=== PATIENT | male | born 1995 | race Hispanic/Latino ===

== ENCOUNTER 2018-12-06 07:47 | Day surgery (SDC) | payer OTHER ==
[~2018-12-06] VITALS: Ht 177.8 cm; Wt 86.2 kg
[~2018-12-06 07:47] MED LIST: EPINEPHrine 1MG/ML INJ 30ML MD-VIAL As Ordered ONE; LIDOCAINE 2% INJ 100 MG/5 ML SDV (FOR ANES.) As Ordered ONE; LIDOCAINE W/EPINEPHRINE 1% 20ML VIAL As Ordered ONE; METHYLENE BLUE 0.5% (5MG/ML) 10 ML AMP (PROVAYBLUE)(Q9968 PER 1MG) As Ordered ONE; MIDAZOLAM INJ 2 MG/2 ML VIAL (J2250) As Ordered ONE; PROPOFOL 200 MG/20 ML VIAL As Ordered ONE; ROCURONIUM BROMIDE 50 MG/5 ML VIAL As Ordered ONE; fentaNYL 250 MCG/5 ML INJECTION (J3010) As Ordered ONE
[2018-12-06] MEDS ORDERED: KETOROLAC 60 MG/2 ML VIAL (J1885) As Ordered ONE (09:07)
[2018-12-06] MEDS ORDERED: ONDANSETRON 4MG/2ML VIAL (J2405) As Ordered ONE ×2 (09:07→09:13)
[2018-12-06] MEDS ORDERED: dexameTHASONE 4 MG/ML 1ML VIAL (J1100) As Ordered ONE (09:07)
[2018-12-06] MEDS ORDERED: SUGAMMADEX SODIUM 500 MG/5 ML VIAL (BRIDION) As Ordered ONE (09:12)
[2018-12-06] MEDS ORDERED: LR 1,000 ML IV SCH ×2 (09:45→10:00)
[2018-12-06] MEDS ORDERED: ACETAMINOPH W/CODEINE #3 TAB UD PO PRN (09:45)
[2018-12-06] MEDS ORDERED: ONDANSETRON 4MG/2ML VIAL (J2405) IV PRN (10:00)
[2018-12-06] MEDS ORDERED: fentaNYL 100 MCG/2 ML INJECTION (J3010) IV PRN (10:00)
[2018-12-06 11:10] VITALS: BP 135/84
--- NOTE | 2018-12-06 12:24 | RO ---
DATE OF PROCEDURE: 12/06/2018 PREOPERATIVE DIAGNOSES: Deviated nasal septal and chronic rhinitis. POSTOPERATIVE DIAGNOSES: Deviated nasal septal and chronic rhinitis. OPERATIVE PROCEDURE: Septoplasty and bilateral turbinectomy. SURGEON: Dr. David Rhodes NEWS COMMENTATOR: ANESTHESIA: DESCRIPTION OF OPERATION: Under general anesthesia with the patient intubated, the nose was infiltrated with lidocaine with epinephrine and I used pledgets of adrenaline 1:1000. I made an incision anterior on the left side of the septum, elevated the subperichondrial and periosteal plane. I the quadrangular cartilage from the ethmoid plate. I removed portions of the maxillary crest, ethmoid plate and vomer which were deviated. Once this was done, the septum was straight. I sutured the quadrangular cartilage to the anterior nasal spine. I then closed the nasal incision with #4-0 chromic. I made an incision anterior to the inferior turbinate on both sides. Microdebrider was used to remove the marie anteriorly. The same procedure was performed on both sides. The patient tolerated the procedure well. A stitch of #4-0 Vicryl was used to close that wound. The patient was extubated and transferred to the recovery room in excellent condition. Less than 10 mL of estimated blood loss. Edited: 12/06/2018 1307 julio c
== END 2018-12-06 11:15 | disposition home or self-care (01) ==
LOC: M SDC 07:47
PROVIDERS: ATTEND Otolaryngology
DX: J34.2 Deviated nasal septum (principal); J31.0 Chronic rhinitis
CPT/HCPCS: 30130; 30520; 88305; J1100; J1885; J2250; J2405; J3010; Q9968

== ENCOUNTER → 2019-07-20 | Outpatient (REF) | payer OTHER | LOC: M SFHCLERA 12:54 | PROVIDERS: ATTEND Nurse Practitioner Family | DX: J02.9 Acute pharyngitis, unspecified (principal) ==